=== PATIENT | female | born 1960 ===

== ENCOUNTER → 2018-02-16 | Outpatient (CLI) | payer BC ==
[~2018-02-16] MED LIST: AMOX500 PO; CIPDEXSU OT; CYCL10 PO; HYDACE5 PO; LEVFLO250 PO; META800 PO; NAPR220; NAPR500 PO; NAPR550 PO; OXYACE5T PO; PENVK500 PO; PHENA200 PO; PROM25 PO; RXCLIN PO; RXNAPNA550 PO; SULTRIDS PO
[2018-02-16 11:59] LABS: BASOPHILS ABSOLUTE AUTO 0.06 K/mm3 (0.00-0.23); BASOPHILS PERCENT AUTO 1 % (0-2); EOSINOPHILS ABSOLUTE AUTO 0.33 K/mm3 (0.00-0.68); EOSINOPHILS PERCENT AUTO 3 % (0-6); Hematocrit 40.6 % (33.0-51.0); Hemoglobin 13.1 g/dL (11.5-16.0); IMMATURE GRAN ABSOLUTE AUTO 0.03 K/mm3 (0.00-0.10); IMMATURE GRAN PERCENT AUTO 0 % (0-1); LYMPHOCYTES ABSOLUTE AUTO 3.73 K/mm3 (0.84-5.20); LYMPHOCYTES PERCENT AUTO 36 % (21-46); MONOCYTES ABSOLUTE AUTO 0.47 K/mm3 (0.16-1.47); MONOCYTES PERCENT AUTO 5 % (4-13); Mean Corpuscular HGB 29.6 pg (26.0-34.0); Mean Corpuscular HGB Conc 32.3 g/dL (31.5-36.5); Mean Corpuscular Volume 92 fL (80-100); Mean Platelet Volume 8.8 fL (9.1-12.4); NEUTROPHILS ABSOLUTE AUTO 5.75 K/mm3 (1.96-9.15); NEUTROPHILS PERCENT AUTO 55 % (41-73); Platelet Count 385 K/mm3 (150-400); RDW Coefficient Variation 13.2 % (11.7-14.2); RDW Standard Deviation 44.1 fL (35.1-46.3); Red Blood Cell Count 4.43 M/mm3 (3.80-5.20); White Blood Cell Count 10.37 K/mm3 (4.00-11.30)
[2018-02-16 12:06] LABS: Anion Gap 7 mmol/L (6-16); Blood Urea Nitrogen 16 mg/dL (8-24); Bun/Creatinine Ratio 17.2 (12.0-20.0); CO2, Blood 30 mmol/L (21-32); Calcium, Blood 9.7 mg/dL (8.5-10.1); Chloride, Blood 98 mmol/L (98-108); Creatinine, Blood 0.93 mg/dL (0.40-1.00); Glomerular Filtration Rate >60 (60-); Glucose, Blood 105 mg/dL (70-99); Potassium, Blood 4.6 mmol/L (3.5-5.5); Sodium, Blood 135 mmol/L (136-145)
[2018-02-16 13:16] LABS: Alanine Aminotransfer (ALT/SGP 31 U/L (12-78); Albumin, Blood 3.3 g/dL (3.4-5.0); Albumin/Globulin Ratio 0.8 (0.8-1.8); Alk Phos 91 U/L (40-126); Anion Gap 9 mmol/L (6-16); Aspartate Aminotrans (AST/SGOT 19 U/L (12-37); Bilirubin, Total 0.2 mg/dL (0.1-1.0); Blood Urea Nitrogen 16 mg/dL (8-24); CHOL/HDL RATIO 3.8; CO2, Blood 28 mmol/L (21-32); Calcium, Blood 9.8 mg/dL (8.5-10.1); Chloride, Blood 99 mmol/L (98-108); Cholesterol 149 mg/dL (50-200); Creatinine, Blood 0.94 mg/dL (0.40-1.00); Globulin, Blood 3.9 g/dL (2.2-4.0); Glomerular Filtration Rate >60 (60-); Glucose, Blood 105 mg/dL (70-99); HDL Cholesterol 39 mg/dL (>39); Low Density Lipoprotein Chol 79 mg/dL (<110); Potassium, Blood 4.4 mmol/L (3.5-5.5); Sodium, Blood 136 mmol/L (136-145); Total Protein, Blood 7.2 g/dL (6.4-8.2); Triglycerides 153 mg/dL (30-160); Very Low Density Lipoprot Chol 30 mg/dL (6-32)
== END ==
LOC: LAB EV 11:56 → LAB SHORT 11:56
PROVIDERS: Emergency Medicine; Physician Assistant
DX: R10.9 Unspecified abdominal pain (principal); E78.5 Hyperlipidemia, unspecified; E11.9 Type 2 diabetes mellitus without complications
CPT/HCPCS: 80048; 80053; 80061; 83036; 85025

== ENCOUNTER 2019-05-30 09:32 | Day surgery (SDC) | payer BC ==
--- NOTE | 2019-05-30 11:36 | NUR ---
REPORT FROM SHANNEN ALVARADO. PT AWAKE AND ORIENTED. PT SLIGHTLY TEARFUL. PT EXPRESSED WANTING TO BE BY HER SIDE. I HELPED HER MAKE A FACETIME CALL TO HER WHICH DECREASED HER ANXIETY. PT STATES SHE IS NOT ON HOME 02 AND SATS RUN FROM 92-96% AT HOME. WILL PROVIDE HER FOOD AND FLUID.
--- NOTE | 2019-05-30 12:53 | NUR ---
Discharge instructions reviewed with patient. Patient verbalizes understanding. Copy given to patient to take home. ALL BELONINGS RETURNED TO PATIENT.
--- NOTE | 2019-05-30 15:14 | NUR ---
[facility] PT HAS NO NEW COMPLAINTS OF PAIN OR SOB. VSS AT BASELINE.
== END 2019-05-30 22:44 | disposition home or self-care (01) ==
LOC: CT 09:32
DX: C34.12 Malignant neoplasm of upper lobe, left bronchus or lung (principal); I10 Essential (primary) hypertension; Z88.0 Allergy status to penicillin; Z88.5 Allergy status to narcotic agent; Z87.891 Personal history of nicotine dependence; J44.9 Chronic obstructive pulmonary disease, unspecified; Z79.899 Other long term (current) drug therapy
CPT/HCPCS: 32405; 71045; 77012

== ENCOUNTER 2020-09-19 19:07 | Inpatient (IN) | payer BC ==
[~2020-09-19] VITALS: Ht 172.7 cm; Wt 147.8 kg
[2020-09-19] MEDS ORDERED: ALPRAZOLAM0.5 M1 PO (19:25)
[2020-09-19] MEDS ORDERED: METFORMIN HCL500 M2 PO (19:26)
[2020-09-19] MEDS ORDERED: CYCL10 PO (19:26)
[2020-09-19] MEDS ORDERED: Ventolin/Prove6.7 GM INH (19:26)
[2020-09-19 21:36] LABS: BASOPHILS PERCENT AUTO 1 % (0-2); EOSINOPHILS ABSOLUTE AUTO 0.03 K/mm3 (0.00-0.68); EOSINOPHILS PERCENT AUTO 0 % (0-6); Hematocrit 36.1 % (33.0-51.0); Hemoglobin 13.5 g/dL (11.5-16.0); IMMATURE GRAN ABSOLUTE AUTO 0.13 K/mm3 (0.00-0.10); IMMATURE GRAN PERCENT AUTO 1 % (0-1); LYMPHOCYTES ABSOLUTE AUTO 1.74 K/mm3 (0.84-5.20); LYMPHOCYTES PERCENT AUTO 11 % (21-46); MONOCYTES ABSOLUTE AUTO 0.67 K/mm3 (0.16-1.47); MONOCYTES PERCENT AUTO 4 % (4-13); Mean Corpuscular HGB 30.4 pg (26.0-34.0); Mean Corpuscular HGB Conc 37.4 g/dL (31.5-36.5); Mean Corpuscular Volume 81 fL (80-100); Mean Platelet Volume 8.9 fL (9.1-12.4); NEUTROPHILS ABSOLUTE AUTO 13.33 K/mm3 (1.96-9.15); NEUTROPHILS PERCENT AUTO 83 % (41-73); Platelet Count 291 K/mm3 (150-400); RDW Coefficient Variation 12.7 % (11.7-14.2); RDW Standard Deviation 37.8 fL (35.1-46.3); Red Blood Cell Count 4.44 M/mm3 (3.80-5.20)
[2020-09-19 22:00] LABS: Alanine Aminotransfer (ALT/SGP 114 U/L (12-78); Albumin, Blood 3.6 g/dL (3.4-5.0); Albumin/Globulin Ratio 0.9 (0.8-1.8); Alk Phos 167 U/L (50-136); Anion Gap 14 mmol/L (6-16); Aspartate Aminotrans (AST/SGOT 159 U/L (12-37); Bilirubin, Total 1.2 mg/dL (0.1-1.0); Blood Urea Nitrogen 13 mg/dL (8-24); Bun/Creatinine Ratio 15.5 (12.0-20.0); CO2, Blood 27 mmol/L (21-32); Calcium, Blood 8.7 mg/dL (8.5-10.1); Chloride, Blood 62 mmol/L (98-108); Creatinine, Blood 0.84 mg/dL (0.40-1.00); Globulin, Blood 3.8 g/dL (2.2-4.0); Glomerular Filtration Rate >60 (60-); Glucose, Blood 138 mg/dL (70-99); Potassium, Blood 3.2 mmol/L (3.5-5.5); Sodium, Blood 103 mmol/L (136-145); Total Protein, Blood 7.4 g/dL (6.4-8.2)
[2020-09-19] MEDS ORDERED: NORCO 7.5-3251 EAC1 PO (22:43)
[2020-09-19] MEDS ORDERED: HYDCHL25 PO (22:45)
[2020-09-19 22:53] LABS: Magnesium, Blood 0.7 mg/dL (1.6-2.4); Phosphorus, Blood 2.5 mg/dL (2.5-4.9)
[2020-09-19 23:39] LABS: Uric Acid, Blood 4.1 mg/dL (2.6-6.0)
[2020-09-20 02:08] LABS: Free Thyroxine 1.83 ng/dL (0.70-1.60); Thyroid Stimulating Hormone 0.154 uIU/mL (0.360-4.800); Triiodothyronine, Free 2.25 pg/mL (2.18-3.98)
[2020-09-20 02:12] LABS: Anion Gap 11 mmol/L (6-16); Blood Urea Nitrogen 13 mg/dL (8-24); Bun/Creatinine Ratio 15.5 (12.0-20.0); CO2, Blood 31 mmol/L (21-32); Calcium, Blood 8.3 mg/dL (8.5-10.1); Chloride, Blood 62 mmol/L (98-108); Creatinine, Blood 0.84 mg/dL (0.40-1.00); Glomerular Filtration Rate >60 (60-); Glucose, Blood 138 mg/dL (70-99); Magnesium, Blood 0.9 mg/dL (1.6-2.4); Phosphorus, Blood 3.1 mg/dL (2.5-4.9); Potassium, Blood 3.3 mmol/L (3.5-5.5); Sodium, Blood 104 mmol/L (136-145)
[2020-09-20 05:37] LABS: Blood Urea Nitrogen 12 mg/dL (8-24); Bun/Creatinine Ratio 15.7 (12.0-20.0); CO2, Blood 30 mmol/L (21-32); Chloride, Blood 63 mmol/L (98-108); Creatinine, Blood 0.76 mg/dL (0.40-1.00); Glomerular Filtration Rate >60 (60-); Glucose, Blood 115 mg/dL (70-99); Potassium, Blood 3.2 mmol/L (3.5-5.5)
[2020-09-20 05:41] LABS: Anion Gap 12 mmol/L (6-16); Sodium, Blood 105 mmol/L (136-145)
[2020-09-20 06:07] LABS: Source, Urine Clean Catch
[2020-09-20 06:11] LABS: Blood, Urine 3+ (Neg); Glucose Qualitative, Urine Neg (Neg); Ketones, Urine 3+ (Neg); Leukocyte Esterase, Urine 1+ (Neg); Nitrite, Urine Neg (Neg); Protein, Urine 2+ (Neg); Urobilinogen, Urine 1+ (Normal)
[2020-09-20 06:23] LABS: Appearance, Urine Hazy (Clear); Bacteria Rare /hpf; Bilirubin, Urine 1+ (Neg); Color, Urine Yellow (P-Yellow); Squamous Epithelial Cells Rare /hpf (Few); White Blood Cells, Urine 0-2 /hpf (0-5)
[2020-09-20 08:13] LABS: Hematocrit 32.4 % (33.0-51.0); Hemoglobin 11.8 g/dL (11.5-16.0)
[2020-09-20 08:32] LABS: Magnesium, Blood 1.3 mg/dL (1.6-2.4)
[2020-09-20 09:05] LABS: Blood Urea Nitrogen 12 mg/dL (8-24); CO2, Blood 30 mmol/L (21-32); Calcium, Blood 8.3 mg/dL (8.5-10.1); Chloride, Blood 65 mmol/L (98-108); Creatinine, Blood 0.75 mg/dL (0.40-1.00); Glomerular Filtration Rate >60 (60-); Glucose, Blood 105 mg/dL (70-99); Phosphorus, Blood 2.3 mg/dL (2.5-4.9); Potassium, Blood 3.5 mmol/L (3.5-5.5)
[2020-09-20 09:07] LABS: Anion Gap 10 mmol/L (6-16); Sodium, Blood 105 mmol/L (136-145)
--- NOTE | 2020-09-20 09:34 | NUR ---
Brief supportive visit this AM. Reviewed chart and discussed case with Pt's ED RN Donal. Pt resting on gurny upon arrival. Pt is A&OX4 and reports 7/10 pain in both of her legs. Pt reports taking [place] at home which manages her pain. Offered therapeutic listening and answered questions. Pt agreeable for continued PC visits. Pt may benefit from her home regimen of pain medication when appropriate. Palliative Care will F/U with Pt for supportive and therapeutic visits.
[2020-09-20 11:36] LABS: Magnesium, Blood 1.5 mg/dL (1.6-2.4)
[2020-09-20 11:42] LABS: Alanine Aminotransfer (ALT/SGP 98 U/L (12-78); Albumin/Globulin Ratio 0.9 (0.8-1.8); Alk Phos 144 U/L (50-136); Aspartate Aminotrans (AST/SGOT 126 U/L (12-37); Bilirubin, Total 0.9 mg/dL (0.1-1.0); Blood Urea Nitrogen 12 mg/dL (8-24); CO2, Blood 29 mmol/L (21-32); Chloride, Blood 66 mmol/L (98-108); Creatinine, Blood 0.71 mg/dL (0.40-1.00); Globulin, Blood 3.2 g/dL (2.2-4.0); Glomerular Filtration Rate >60 (60-); Glucose, Blood 106 mg/dL (70-99); Total Protein, Blood 6.2 g/dL (6.4-8.2)
[2020-09-20 11:46] LABS: Anion Gap 12 mmol/L (6-16); Sodium, Blood 107 mmol/L (136-145)
[2020-09-20 17:58] LABS: Anion Gap 9 mmol/L (6-16); Blood Urea Nitrogen 10 mg/dL (8-24); Bun/Creatinine Ratio 14.5 (12.0-20.0); CO2, Blood 30 mmol/L (21-32); Calcium, Blood 8.1 mg/dL (8.5-10.1); Chloride, Blood 70 mmol/L (98-108); Creatinine, Blood 0.69 mg/dL (0.40-1.00); Glomerular Filtration Rate >60 (60-); Glucose, Blood 97 mg/dL (70-99); Phosphorus, Blood 2.3 mg/dL (2.5-4.9); Potassium, Blood 3.6 mmol/L (3.5-5.5); Sodium, Blood 109 mmol/L (136-145)
[2020-09-21 00:31] LABS: C DIFFICILE DNA NEGATIVE (Negative)
[2020-09-21 01:23] LABS: Magnesium, Blood 1.4 mg/dL (1.6-2.4)
--- NOTE | 2020-09-21 05:18 | NUR ---
SHIFT SUMMARY PT RESTED WELL THROUGH NIGHT. ALERT AND ORIENTED, COOPERATIVE WITH PLAN OF CARE. ABLE TO MAKE NEEDS KNOWN. SATS >90% ON ROOM AIR, HOWEVER DID HAVE A MOMENT WHERE DESATTED TO 65%, UNSURE HOW OR WHY, BUT PLACED 5LNC ON TO RECOVER, AND PT QUICKLY CAME BACK UP TO HIGH 90%. WILL CONTINUE TO MONITOR. TELE NSR. NO C/O CHEST PAIN. BP AND HR WNL. CHRISTOPHER IN PLACE, DRAINING TO GRAVITY AND ODETTE CARE PERFORMED. RECTAL TUBE IN PLACE, C. DIFF NEGATIVE. 1000ML FLUID RESTRICTION. R IJ IN PLACE AND FLUSHES AND DRAWS WELL. TRENDING AND MONITORING ELECTROLYTE WITH NORTON - SEE EMAR. Q6 CBG - LATEST READING 103. VSS. CALL LIGHT WITHIN REACH, BED IN LOWEST POSITION. WILL CONTINUE TO MONITOR.
[2020-09-21 06:11] LABS: Hematocrit 31.3 % (33.0-51.0); Hemoglobin 11.1 g/dL (11.5-16.0)
[2020-09-21 06:33] LABS: Albumin, Blood 2.7 g/dL (3.4-5.0); Blood Urea Nitrogen 7 mg/dL (8-24); Bun/Creatinine Ratio 11.5 (12.0-20.0); CO2, Blood 33 mmol/L (21-32); Calcium, Blood 7.9 mg/dL (8.5-10.1); Chloride, Blood 75 mmol/L (98-108); Creatinine, Blood 0.61 mg/dL (0.40-1.00); Glomerular Filtration Rate >60 (60-); Glucose, Blood 90 mg/dL (70-99); Magnesium, Blood 2.1 mg/dL (1.6-2.4); Phosphorus, Blood 1.8 mg/dL (2.5-4.9); Potassium, Blood 3.4 mmol/L (3.5-5.5)
[2020-09-21 06:34] LABS: Anion Gap 8 mmol/L (6-16); Sodium, Blood 116 mmol/L (136-145)
[2020-09-21 11:31] LABS: Magnesium, Blood 1.5 mg/dL (1.6-2.4)
--- NOTE | 2020-09-21 11:39 | NUR ---
Pt resting in bed upon arrival. Primary RN Elena at bedside changing dressings. Pt denies pain at this time. Engaged in therapeutic conversation regarding code status and considering completing AD/POLST. Pt is agreeable. Educated on life sustaining treatments listed on POLST with V/U made by Pt. Assisted Pt in completing POLST per her request. Pt's wishes on POLST are DNR with Full Treatment. Pt confirms her understanding of not wanting chest compressions and is ok with intubation. Educated on Advanced Directive and each section that needs to be completed. Educated on life sustaining treatments in each scenario. Pt reports feeling overwhelmed with information and would like to complete AD tomorrow. No other concerns reported at this time. Spoke with Primary THERESA Parker. This RN will call Pt's SO and request for him to bring in Pt's CPAP. Dr Tarango would also like to have discussion with Pt when SO is present. Attempted to contact Pt's SO Cesar. Left message on voicemail with request for a return phone call. Palliative Care will remain available.
[2020-09-21 11:40] LABS: Potassium, Blood 2.8 mmol/L (3.5-5.5)
--- NOTE | 2020-09-21 12:56 | NUR ---
09/21/20- per chart review with Dr. Tarango, Dr. Browne is consulting on pt and she is going to ask that palliative care consult with family and patient about care goals. No plan for discharge at this time, most likely stay on through the weekend. -geovanna
--- NOTE | 2020-09-21 14:48 | NUR ---
PATIENT IS RESTING IN BED WITH EYES CLOSED, RESP E/U. I NOTICED EARLIER THE PATIENT IS HAVING OCCASIONAL APNEC EPISODES, SHE STATES SHE DOES WEAR A C-PAP AT HOME. HER IS UNABLE TO BRING HER HOME C-PAP IN TODAY, HE DOES NOT HAVE A RIDE. THIS RN DISCUSSED WITH RT THE PATIENTS LULY AND C-PAP USE AT HOME. HER SODIUM EALIER CAME BACK AT 119, I WAS ABLE TO TITRATE THE 3 PERCENT SALINE DOWN TO 25ML/HR. THE PATIENTS POTASSIUM AND MAGNESIUM WERE ALSO STILL LOW, 1 GM MAG GIVEN AND 40 MEQ OF KCL INFUSING, WILL RECHECK LABS AND CALL RESULTS TO DR. NORTON. OTHER VSS. CALL LIGHT IN REACH. WILL CONTINUE TO MONITOR.
[2020-09-21 16:00] LABS: Phosphorus, Blood 2.6 mg/dL (2.5-4.9)
--- NOTE | 2020-09-21 17:26 | NUR ---
SUMMARY: PATIENT WAS ON 3% SALINE FOR MOST OF THE SHIFT, I WAS ABLE TO TITRATE DOWN AND DC AT 1630. NEXT NA+ TO BE DRAWN AT 2000. MAGNESIUM, POTASSIUM, AND PHOS REPLACED WELL. RECTAL TUBE DC'D, PT HAD MINIMAL OUTPUT AND STOOL WAS LEAKING AROUND. UO 2800. PT IS OOB TO CHAIR THIS EVENING. NO ACUTE CHANGES THIS SHIFT. WILL REPORT TO LUIS CARDENAS.
--- NOTE | 2020-09-21 18:04 | NUR ---
Joint visit this evening with Dr Tarango, this RN, Pt and Pt's SO. Dr Tarango reviews current plan of care and discusses options moving forward. Therapeutic listening offered and Dr Smalls answers questions. Goals and values discussed. Pt and SO would like to have sodium corrected then home with hospice services. Pt signs new POLST and Dr Tarango signs as well. Pt's wishes are DNR. No other concerns reported at this time. Changed Pt's code status to DNR per order from Dr Tarango. Palliative Care will F/U for supportive visits.
[2020-09-21 20:28] LABS: Magnesium, Blood 1.6 mg/dL (1.6-2.4)
[2020-09-21 20:38] LABS: Potassium, Blood 3.3 mmol/L (3.5-5.5)
[2020-09-22 04:08] LABS: Hematocrit 31.1 % (33.0-51.0); Hemoglobin 10.7 g/dL (11.5-16.0)
[2020-09-22 04:24] LABS: Albumin, Blood 2.6 g/dL (3.4-5.0); Anion Gap 3 mmol/L (6-16); Blood Urea Nitrogen 9 mg/dL (8-24); Bun/Creatinine Ratio 14.9 (12.0-20.0); CO2, Blood 36 mmol/L (21-32); Calcium, Blood 7.6 mg/dL (8.5-10.1); Chloride, Blood 84 mmol/L (98-108); Glomerular Filtration Rate >60 (60-); Glucose, Blood 93 mg/dL (70-99); Magnesium, Blood 1.9 mg/dL (1.6-2.4); Phosphorus, Blood 1.8 mg/dL (2.5-4.9); Potassium, Blood 3.3 mmol/L (3.5-5.5); Sodium, Blood 123 mmol/L (136-145)
--- NOTE | 2020-09-22 06:31 | NUR ---
SHIFT SUMMARY PATIENT FOUND TO BE A PLEASANT LADY WHO IS A&OX4 WITH GEN WEAKNESS. VSS. ON RA AT START OF SHIFT SATING HIGH 90'S AND CPAP PUT ON FOR SLEEP. NO DISTRESS OR COUGH NOTED. NSR ON THE IN THE 70'S. DR. NORTON UPDATED THROUGHOUT SHIFT ABOUT PATIENT'S ELECTROLYTES AND ADJUSTED ACCORDINGLY. COMPLAINT WITH 1000ML FLUID RESTRICTION. LOOSE BM IN BEDPAN AT START OF SHIFT. TOLERATING CLD BUT NOT MUCH OF AN APPETITE. CHRISTOPHER PATENT DRAINING TO GRAVITY. LIDOCAINE PATCH ADDED THIS AM TO HELP WITH BACK SORENESS. NO ACUTE CONCERNS AT THIS TIME. WILL CONTINUE TO MONITOR UNTIL REPORT GIVEN TO DAYSHIFT RN.
--- NOTE | 2020-09-22 07:15 | NUR ---
Assumed care of the pt. Pt is a/o. Follows commands. Occ. seems to be sl. confused. No Resp distress on RA. Monitor denoted NSR. VSS. Sheryl. Cl Liq. well. Fluid Restrict of 1000ml/24 hr. Kidd intact. BT active x4. IV site x 2 intact. KCL and NAPhos infusing.
--- NOTE | 2020-09-22 11:47 | NUR ---
Report given to Haylie Menjivar RN.Pt. con't occ confused but pleasantly so. No chg in statuss. No acute distress. Transferred to [facility] via bed.
--- NOTE | 2020-09-22 13:22 | NUR ---
Spoke with pt's florentino Guerrero by phone this morning. He has called multiple times hoping for an update on pt's condition. I walked pt through the plan of care specifically. According to Dr. Tarango, both Cesar and Chantel came to the decision together to treat the sodium deficiency if able, then pt to go home with hospice. However, the issue with hyponatremia is likely related to her disease process, and may continue to be an issue through end of life. I did dicuss this today with Cesar, and he verbalized understanding. He has made it clear his goal is to bring pt home on hospice in the near future. I met with pt as well, and she also expressed the desire to return home soon. In fact, the pt stated today that she would like to go home as soon as she is clear for discharge. Discussed this with Dr. Tarango, who will be reviewing this case again later today, and plans to d/c pt by or on Thursday.
--- NOTE | 2020-09-22 13:41 | NUR ---
Equipment needs: Pt will require both a hospital bed and w/c through hospice when discharging home.
--- NOTE | 2020-09-22 14:44 | NUR ---
Pt's primary RN states pt has been cleared to go home. However, pt's gait is unsteady, and she is only able to pivot from bed to chair safely. She will need to have a bed, wheelchair and bedside commode delivered by hospice in order to return home safely. Contacted [facility], as they do admit on the weekends occasionally. Left a message with RN. She will have liason return the call to either Theresa or myself regarding this pt for possible admit tomorrow, ThursdaySep 23 but only if they are also able to secure the needed equipment. Otherwise, discharge would have to take place after the weekend, on Thursday. Will update Dr. Tarango and Theresa in Palliative care.
--- NOTE | 2020-09-22 15:21 | NUR ---
[facility] is able to admit patient tomorrow, as well as deliver hospital bed, wheelchair and bedside commode. Pt and s/o are both aware, as is charger testerTHERESA Oliva and Dr. Tarango. Pt will need a gurney transport, as the front of the home has steps. As of the time of this writing, [facility] has not given us a time for admission tomorrow.
--- NOTE | 2020-09-22 16:29 | NUR ---
[facility] ADMISSION TIME FOR Thursday is 1pm, at pt's home. [facility] complaint coordinator will be contacting pt's SO, Cesar, to arrange DME delivery tonight or tomorrow am. Pt's RN notified and Dr Tarango notified.
--- NOTE | 2020-09-22 18:31 | NUR ---
SHIFT SUMMARY ICU TRANSFER THIS AFTERNOON. PATIENT DENIES PAIN, NAUSEA, AND SHORTNESS OF BREATH. PATIENT UP TO CHAIR TWO MAX/GAIT BELT. [facility] AT BEDSIDE THIS AFTERNOON. PATIENT TO DISCHARGE HOME ON HOSPICE TOMORROW. [facility] NURSE TO MEET PATIENT AT HOME AT 1PM. CHRISTOPHER PATENT AND DRAINING. PLEASANT AND COOPERATIVE WITH CARE.
--- NOTE | 2020-09-23 04:22 | NUR ---
RN PALLIATIVE CARE SUMMARY WAS ASSITED TO BED AT WITH 2 STAFF. VERY SLOW AND WEAK TO MOVE. HAS BEEN RESTING QUIETLY WITH FEW INTERRUPTIONS SINCE THEN. CANDI LLAMAS. CALL LIGHT IN REACH.
[2020-09-23 05:11] LABS: Hematocrit 32.3 % (33.0-51.0); Hemoglobin 10.8 g/dL (11.5-16.0)
[2020-09-23 05:40] LABS: Albumin, Blood 2.7 g/dL (3.4-5.0); Anion Gap 5 mmol/L (6-16); Blood Urea Nitrogen 13 mg/dL (8-24); Bun/Creatinine Ratio 20.4 (12.0-20.0); CO2, Blood 38 mmol/L (21-32); Calcium, Blood 8.8 mg/dL (8.5-10.1); Chloride, Blood 83 mmol/L (98-108); Creatinine, Blood 0.64 mg/dL (0.40-1.00); Glomerular Filtration Rate >60 (60-); Glucose, Blood 96 mg/dL (70-99); Magnesium, Blood 1.4 mg/dL (1.6-2.4); Phosphorus, Blood 2.2 mg/dL (2.5-4.9); Potassium, Blood 3.2 mmol/L (3.5-5.5); Sodium, Blood 126 mmol/L (136-145)
[2020-09-23] MEDS ORDERED: SODCHL1 PO (10:52)
--- NOTE | 2020-09-23 11:30 | NUR ---
Pt visit prior to transport home. Pt is anxious and expressed impatience with getting ready for d/c. I assisted in gathering and bagging up her personal belongings for her. I redirected and explained why she could not get dressed until neal cath was removed, per her request to have it removed. Pt's RN is working on d/c paperwork and tasks at this time. Transport by rney arranged by RN and scheduled for noon. Pt did not report pain. She is showing nonverbal indicators of anxiety and dyspnea. She has been medicated prn for her s/s per eMAR.
--- NOTE | 2020-09-23 12:18 | NUR ---
DISCHARGE DISCHARGE HOME ON HOSPICE. [facility] TO MEET PATIENT AT HOME FOR INTAKE AT 1PM. CENTRAL LINE REMOVED BY JIGGER ARTISAN. PATIENT TRANSPORTED [email or web address] [email or web address] [facility]. JUSTIN AWARE OF TRANSPORT TIME. BELONGINGS WITH PATIENT.
== END 2020-09-23 12:15 | disposition hospice, home (50) | DRG 641 ==
LOC: ER 19:07 → ICUE 23:20 → ERHOLD 23:20 → ICUE 09-20 20:20 → MEDS 09-22 11:55
PROVIDERS: Family Medicine; Internal Medicine; Internal Medicine Nephrology; Physician Assistant; ADMIT Family Medicine
DX: E87.1 Hypo-osmolality and hyponatremia (principal); Z68.43 Body mass index [BMI] 50.0-59.9, adult; N17.9 Acute kidney failure, unspecified; C34.90 Malignant neoplasm of unspecified part of unspecified bronchus or lung; C78.7 Secondary malignant neoplasm of liver and intrahepatic bile duct; E87.6 Hypokalemia; Z66 Do not resuscitate; R94.6 Abnormal results of thyroid function studies; E83.42 Hypomagnesemia; E83.39 Other disorders of phosphorus metabolism; E88.09 Other disorders of plasma-protein metabolism, not elsewhere classified; D64.9 Anemia, unspecified; E11.22 Type 2 diabetes mellitus with diabetic chronic kidney disease; I12.9 Hypertensive chronic kidney disease with stage 1 through stage 4 chronic kidney disease, or unspecified chronic kidney disease; N18.9 Chronic kidney disease, unspecified; J44.9 Chronic obstructive pulmonary disease, unspecified; G89.29 Other chronic pain; Z88.1 Allergy status to other antibiotic agents; Z88.5 Allergy status to narcotic agent; Z92.21 Personal history of antineoplastic chemotherapy; Z79.84 Long term (current) use of oral hypoglycemic drugs; Z79.899 Other long term (current) drug therapy; Z87.891 Personal history of nicotine dependence
CPT/HCPCS: 36415; 36556; 51702; 71045; 80048; 80053; 80069; 81001; 82530; 82947; 83036; 83735; 83930; 83935; 84100; 84132; 84295; 84300; 84439; 84443; 84481; 84550; 85014; 85018; 85025; 87086; 87493; 93005; 93010; 94640; 96365; 96366; 96372; 96374; 96375; 96376; 99285-25; A9270; J0690; J1650; J1940; J3475; J3480; J7050; J7060